=== PATIENT | female | born 1955 | race Caucasian/White ===

== ENCOUNTER 2024-10-26 14:56 | Emergency (ER) | payer MEDICARE ==
[~2024-10-26] VITALS: Ht 162.6 cm; Wt 74.8 kg
[2024-10-26 15:00] VITALS: TEMP 97.9
[2024-10-26 15:13] LABS: PLATELET COUNT (AUTO) 215 K/uL (150-450); RED BLOOD CELL COUNT(AUTO) 4.82 MIL/uL (4.0-5.2); RED CELL DISTRIBUTION WIDTH 13.2 % (11.5-15.0); WHITE BLOOD COUNT (AUTO) 8.0 K/uL (4.3-11.0)
[2024-10-26 15:21] LABS: CALCIUM, SERUM 9.4 mg/dL (8.5-10.1); CREATININE 0.7 mg/dL (0.6-1.3); SODIUM SERUM 137 mmol/L (136-145); UREA NITROGEN, BLOOD 10 mg/dL (7-18)
[2024-10-26] MEDS: HEPARIN SODIUM, PORCINE 5000 UNITS/1 ML VIAL IV ONE (15:29)
[2024-10-26 15:30] VITALS: BP 157/84; O2SAT 99
== END 2024-10-26 15:46 | disposition short-term general hospital (02) ==
LOC: ER 15:00
DX: I21.09 ST elevation (STEMI) myocardial infarction involving other coronary artery of anterior wall (principal); I10 Essential (primary) hypertension; R07.89 Other chest pain; Z85.3 Personal history of malignant neoplasm of breast; Z92.3 Personal history of irradiation; Z60.2 Problems related to living alone
CPT/HCPCS: 99291; 96374; 93005 ×3; 71045; 85025; 80048; 36415; 84484; J1644